=== PATIENT | male | born 1940 | race Caucasian/White ===

== ENCOUNTER 2017-11-02 11:00 | Observation (INO) ==
[2017-11-02 12:16] LABS: Basophils # 0.1 K/mcL (0.0-0.2); Basophils % 0.7 %; Eosinophils # 0.5 K/mcL (0.0-0.6); Eosinophils % 5.6 %; Hematocrit 53.6 % (37.5-50.1); Hemoglobin 18.2 g/dL (12.9-16.9); Immature Granulocytes % 0.5 % (0-4); Lymphocytes # 2.1 K/mcL (0.6-4.6); Lymphocytes % 23.6 %; Mean Corpuscular Hemoglobin 30.5 pg (28.0-33.3); Mean Corpuscular Volume 89.9 fL (83.0-100.0); Mean Platelet Volume 10.3 fL (9.4-12.4); Monocytes # 0.9 K/mcL (0.0-1.3); Monocytes % 10.1 %; Neutrophils # 5.2 K/mcL (1.6-8.9); Platelet Count 253 K/mcL (140-400); Red Blood Count 5.96 M/mcL (4.19-5.50); Segmented Neutrophils % 59.5 %
[2017-11-02 12:25] LABS: Activated Partial Thrombo Time 27.3 Seconds (26.0-36.0)
[2017-11-02 12:35] LABS: BUN/Creatinine Ratio 32 (6-26); Blood Urea Nitrogen 30 mg/dL (8-23); Calcium 10.1 mg/dL (8.6-10.3); Carbon Dioxide 29 mEq/L (23-29); Chloride 102 mEq/L (98-107); Glucose 113 mg/dL (70-105); Osmolality,Calculated 291 (280-300); Potassium 5.3 mEq/L (3.5-5.1); Sodium 137 mEq/L (136-145); eGFR For African Americans > 60 (> 60); eGFR For Non-African Americans > 60 (> 60)
--- NOTE | 2017-11-02 13:17 | Emergency Department Note ---
Disposition Clinical Impression: Atrial fibrillation with RVR Disposition: Admitted As Inpatient Condition: Fair Time of Disposition: 14:12 Arrhythmia/Palpitations HPI - General Chief Complaint: ED Arrhythmia/Palpitations Stated Complaint: new onset afib after epidural injection Time Seen by Provider: 11/02/17 11:26 Source: patient Limitations: no limitations Nursing Notes Reviewed: Yes Vital Signs Reviewed: Yes - History of Present Illness HPI Narrative: 77-year-old male complains of irregular heartbeat for the past 8 months with no follow-up or investigation was found to be A. fib RVR at Dr. Wood's pain management office today. Patient was sent to ED. Patient denies any symptoms of chest pain, back pain, shortness of breath, nausea or vomiting. Patient states he has been having worsening weakness over the past several years. He is currently being treated at pain management for this chronic back pain, and associated upper and lower extremity paresthesias Since his back surgery. - Related Data Home Medications Medication Instructions Recorded Confirmed ALPRAZolam [Xanax 1 MG Tablet] 1 mg PO DAILY 11/02/17 11/02/17 Albuterol Sulfate [Ventolin Hfa] 2 puff IH Q6H PRN 11/02/17 11/02/17 Gabapentin [Neurontin] 300 mg PO DAILY 11/02/17 11/02/17 Levothyroxine [Synthroid] 88 mcg PO DAILY 11/02/17 11/02/17 Lisinopril [Zestril] 10 mg PO DAILY 11/02/17 11/02/17 Pantoprazole Sodium [Protonix] 40 mg PO DAILY 11/02/17 11/02/17 Allergies Allergy/AdvReac Type Severity Reaction Status Date / Time No Known Allergies Allergy Unverified 11/02/17 11:05 All systems ED: reviewed and negative except as stated. Review of Systems: As Per HPI Constitutional: Reports: weakness. Denies: fever, chills Eyes: Denies: vision change ENT ED: Reports: congestion Cardiovascular: Denies: chest pain, palpitations Respiratory: Reports: cough. Denies: dyspnea Gastrointestinal: Denies: abdominal pain, nausea, vomiting, diarrhea Genitourinary: Denies: urgency, dysuria, frequency, hematuria, discharge Past Medical History - Past Medical History Attestation: Yes The following information was validated with the patient. Source: patient, nursing notes reviewed Medical history: Reports: thyroid disease Psychiatric history: Reports: no psych history - Social History Smoking Status: Never smoker Smokeless Tobacco Status: No Alcohol use: Reports: none Drug use: Reports: none Physical Exam Vital Signs Temperature 97.8 F 11/02/17 11:06 Pulse Rate 66 11/02/17 11:06 Respiratory Rate 20 11/02/17 11:06 Blood Pressure 115/73 11/02/17 11:06 O2 Sat by Pulse Oximetry 95 11/02/17 11:06 Temperature 97.8 F 11/02/17 11:06 Pulse Rate 132 11/02/17 13:37 Respiratory Rate 18 11/02/17 13:37 Blood Pressure 101/84 11/02/17 13:37 O2 Sat by Pulse Oximetry 96 11/02/17 13:37 Oxygen Delivery Oxygen Delivery Room Air CONSTITUTIONAL: Well-appearing; well-nourished; A&O X 3, in no apparent distress HEAD: Normocephalic; atraumatic EYES: PERRL, no scleral icterus NOSE: The nose is normal in appearance without rhinorrhea NECK: No JVD or distended neck veins RESP: Normal chest excursion with respiration; breath sounds slightly decreased in the right lower lobe when compared to the left lower lobe; no wheezes, rhonchi, or rales CARD: Irregularly irregular rhythm without murmurs, rub or gallop ABD: Non-distended; non-tender, soft, without rigidity, rebound or guarding,no pulsatile mass CHEST: No pain with palpation SKIN: Normal for age and race; warm and dry without diaphoresis ; no apparent lesions EXTREMITIES: Pulses are 2 plus and equal times 4 extremities, no peripheral edema or calf muscle pain - General Limitations: no limitations General appearance: alert Course - Reevaluation(s) Reevaluation #1: TSH elevated HR 92 Time: 13:17 Vital Signs Temperature 97.8 F 11/02/17 11:06 Pulse Rate 66 11/02/17 11:06 Respiratory Rate 20 11/02/17 11:06 Blood Pressure 115/73 11/02/17 11:06 O2 Sat by Pulse Oximetry 95 11/02/17 11:06 Temperature 97.8 F 11/02/17 11:06 Pulse Rate 108 11/02/17 15:58 Respiratory Rate 16 11/02/17 15:58 Blood Pressure 125/85 11/02/17 15:58 O2 Sat by Pulse Oximetry 93 11/02/17 15:58 Oxygen Delivery Oxygen Delivery Room Air Arrhythmia/Palpitations - [facility] Narrative Medical decision making narrative: Patient new-onset A. fib RVR. No prior cardiac history. Patient has recent upper respiratory infection with cough, chest x-ray taken to rule out pneumonia. TSH ordered this patient has complaints of recent medication difficulties concerning his levothyroxine. Patient's noticed worsening weakness since the manufacturers of his medications were switched. Patient has remained pain-free throughout his evaluation. Patient started on diltiazem 5 mg per hour for A. fib RVR. Patient's rate has been between 110s and 130s to 140 but patient is remained asymptomatic. EKG does not show any signs of ischemia. We do not have her previous EKG for comparison. Chest x-ray was negative for pneumonia. Current plan is to admit the patient for A. fib RVR. Patient understands and agrees to admission. Dr. Noel, the [facility] has accepted Pt for admission at 1324hrs. - Lab Data Lab results reviewed: Yes I reviewed the patient's lab results. Lab results narrative: Short CBC 11/02/17 Range/Units 12:05 WBC 8.7 (4.3-11.1) K/mcL Hgb 18.2 H (12.9-16.9) g/dL Hct 53.6 H (37.5-50.1) % Plt Count 253 (140-400) K/mcL Neutrophils # 5.2 (1.6-8.9) K/mcL BMP 11/02/17 Range/Units 12:05 Sodium 137 (136-145) mEq/L Potassium 5.3 H (3.5-5.1) mEq/L Chloride 102 (98-107) mEq/L Carbon Dioxide 29 (23-29) mEq/L BUN 30 H (8-23) mg/dL Creatinine 0.93 (0.70-1.30) mg/dL Glucose 113 H (70-105) mg/dL Calcium 10.1 (8.6-10.3) mg/dL Cardiac Enzymes 11/02/17 Range/Units 12:05 Troponin I < 0.03 (< 0.04) ng/mL Result diagrams: 11/02/17 12:05 11/02/17 12:05 Lab Results 11/02/17 11/02/17 11/02/17 Range/Units 12:05 12:05 12:05 WBC 8.7 (4.3-11.1) K/mcL RBC 5.96 H (4.19-5.50) M/mcL Hgb 18.2 H (12.9-16.9) g/dL Hct 53.6 H (37.5-50.1) % MCV 89.9 (83.0-100.0) fL MCH 30.5 (28.0-33.3) pg MCHC 34.0 (31.6-35.5) g/dL RDW 13.0 (11.5-14.5) % Plt Count 253 (140-400) K/mcL MPV 10.3 (9.4-12.4) fL Immature Gran % 0.5 (0-4) % Seg Neutrophils % 59.5 % Lymphocytes % 23.6 % Monocytes % 10.1 % Eosinophils % 5.6 % Basophils % 0.7 % Neutrophils # 5.2 (1.6-8.9) K/mcL Lymphocytes # 2.1 (0.6-4.6) K/mcL Monocytes # 0.9 (0.0-1.3) K/mcL Eosinophils # 0.5 (0.0-0.6) K/mcL Basophils # 0.1 (0.0-0.2) K/mcL PT 11.0 (9.4-12.1) Seconds INR 1.0 APTT 27.3 (26.0-36.0) Seconds Sodium 137 (136-145) mEq/L Potassium 5.3 H (3.5-5.1) mEq/L Chloride 102 (98-107) mEq/L Carbon Dioxide 29 (23-29) mEq/L BUN 30 H (8-23) mg/dL Creatinine 0.93 (0.70-1.30) mg/dL Est GFR ( Amer) > 60 (> 60) Est GFR (Non-Af Amer) > 60 (> 60) BUN/Creatinine Ratio 32 H (6-26) Glucose 113 H (70-105) mg/dL Calculated Osmolality 291 (280-300) Calcium 10.1 (8.6-10.3) mg/dL Troponin I (< 0.04) ng/mL TSH 4.540 (0.340-5.600) mcIU/mL 11/02/17 Range/Units 12:05 WBC (4.3-11.1) K/mcL RBC (4.19-5.50) M/mcL Hgb (12.9-16.9) g/dL Hct (37.5-50.1) % MCV (83.0-100.0) fL MCH (28.0-33.3) pg MCHC (31.6-35.5) g/dL RDW (11.5-14.5) % Plt Count (140-400) K/mcL MPV (9.4-12.4) fL Immature Gran % (0-4) % Seg Neutrophils % % Lymphocytes % % Monocytes % % Eosinophils % % Basophils % % Neutrophils # (1.6-8.9) K/mcL Lymphocytes # (0.6-4.6) K/mcL Monocytes # (0.0-1.3) K/mcL Eosinophils # (0.0-0.6) K/mcL Basophils # (0.0-0.2) K/mcL PT (9.4-12.1) Seconds INR APTT (26.0-36.0) Seconds Sodium (136-145) mEq/L Potassium (3.5-5.1) mEq/L Chloride (98-107) mEq/L Carbon Dioxide (23-29) mEq/L BUN (8-23) mg/dL Creatinine (0.70-1.30) mg/dL Est GFR ( Amer) (> 60) Est GFR (Non-Af Amer) (> 60) BUN/Creatinine Ratio (6-26) Glucose (70-105) mg/dL Calculated Osmolality (280-300) Calcium (8.6-10.3) mg/dL Troponin I < 0.03 (< 0.04) ng/mL TSH (0.340-5.600) mcIU/mL - Radiology Data Radiology results reviewed: Yes I reviewed the patient's radiology results. Chest X-Ray 11/02/17 11:32 IMPRESSION: Mild cardiomegaly. No acute pulmonary disease. D/ / Jorge Hernandez MD / Jorge Hernandez MD Interpreting Provider: Jorge Hernandez MD Attestation Statement - Attestation Attestation: I, Zacarias Nowak, examined this patient and my medical decision-making was reviewed with the NEPHROLOGIST/PA/Advanced Practice Nurse/Resident Physician. I agree with the documented findings, disposition and treatment plan as described except to the extent set forth below. 77-year-old male presents emergency Department with concerns of irregular heart rate. Patient states his symptoms have been present for the past 8 months. He does not have a history of atrial fibrillation or a flutter however the has noticed an irregular heartbeat. Patient denies fever, chills, nausea, vomiting, diarrhea. Patient states he takes levothyroxine and felt he may have been becoming hyper thyroid and stopped his levothyroxine 3 days ago. Patient has elevated TSH in emergency department which is consistent with stopping his medications. Patient to take metoprolol or diltiazem or other heart rate limiting medications. No other recent trauma. Patient heart rate bouncing between 100-140 in the emergency department. He was started on diltiazem drip. He denies chest pain, shortness breath, syncope. He does report weakness with exertion over the past few weeks. Patient comfortable with the plan for admission to hospital for further care and evaluation.
[2017-11-02] MEDS ORDERED: *HR* Metoprolol 5 MG/5 ML VIAL IVP PRN (13:46)
[2017-11-02] MEDS ORDERED: Naloxone 0.4 MG/ML INJ IVP PRN (14:02)
--- NOTE | 2017-11-02 14:08 | Internal Med History&Physical ---
Date of Encounter: 11/02/17 Time of Encounter: 14:05 Assessment and Plan (1) New onset atrial fibrillation Current visit: Yes Status: Acute New A-fib with RVR, no prior cardiac history. Exacerbating factor is unclear, no h/o CAD, No S/sx of ACS, CXR shows no acute disease, No obvious infective source. He is reporting an 8 month h/o exertional dyspnea, and activity intolerance d/t fatigue. Additionally he has hypothyroidism but his TSH resulted at 4.54. He is now on a cardizem gtt and no longer RVR. 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 CHADS-VASc score of 2, HAS-BLED of 2 -Continue Cardizem gtt -Continuous tele and Spo2 monitoring -Heparin 5000 units SC BID for DVT prophylaxis -Cardio consult d/t new onset -NICOLETTE (2) Activity intolerance related to fatigue Current visit: Yes Status: Acute Reporting an 8 month h/o activity intolerance r/t fatigue. He is also reporting exertional dyspnea during that time. He was found to be a-fib RVR today on EKG and this is likely the cause of his activity intolerance and dyspnea. See plan above (3) Hyperkalemia Current visit: Yes Status: Acute Serum potassium of 5.3. He is on an LONDON inhibitor. Hold LONDON for now. Recheck serum potassium at 1800 today, BMP in the am, continuous tele (4) HTN (hypertension) Current visit: Yes Status: Acute Stable, however he is on an LONDON and has hyperkalemia -hold LONDON -Metoprolol 5mg IVP Q6h PRN for SBP greater than 160 Qualifiers: Hypertension type: essential hypertension Qualified Code(s): I10 - Essential (primary) hypertension (5) Hypothyroidism Current visit: Yes Status: Acute TSH 4.54, Continue synthroid Qualifiers: Hypothyroidism type: unspecified Qualified Code(s): E03.9 - Hypothyroidism , unspecified (6) DVT prophylaxis Current visit: Yes Status: Acute Heparin 5000 units SC BID Internal Medicine - H&P: HPI Chief complaint: shortness of breath, weakness, lightheadedness Admitted From: Home Plans for Post Hospital Care: Home History of present illness: Mr. Rivera is a 77 year old male with a PMH of hypertension and hypothyroidism. The patient presents to the emergency department today from [facility] and joint after getting a steroid injection. He reports that while at the due to bone and joint he had an EKG due to fast heart rate and he was found to be in A. fib with RVR. He has no prior history of CAD and has never had an episode of atrial fibrillation before. Upon questioning the patient reveals that he has had exertional dyspnea and activity intolerance due to fatigue for approximately the last 8 months. While in the emergency department he was started on a diltiazem drip. He denies any chest pain,, headache, syncope, dizziness, abdominal pain, nausea, vomiting, diarrhea. He admits to exertional dyspnea, lightheadedness and fatigue with activity. He states that these symptoms have been getting worse over the last month. Past Med Surg Social Fam HX - Past Medical History Medical history: thyroid disease Psychiatric history: no psych history - Social History Smoking Status: Never smoker Smokeless Tobacco Status: No Alcohol use: none Drug use: none - Additional Family History Additional family history: noncontributory Internal Medicine - H&P: Meds ALPRAZolam [Xanax 1 MG Tablet] 1 mg PO DAILY 11/02/17 [History] Albuterol Sulfate [Ventolin Hfa] 2 puff IH Q6H PRN 11/02/17 [History] Gabapentin [Neurontin] 300 mg PO DAILY 11/02/17 [History] Levothyroxine [Synthroid] 88 mcg PO DAILY 11/02/17 [History] Lisinopril [Zestril] 10 mg PO DAILY 11/02/17 [History] Pantoprazole Sodium [Protonix] 40 mg PO DAILY 11/02/17 [History] 3 Allergy/AdvReac Type Severity Reaction Status Date / Time No Known Allergies Allergy Unverified 11/02/17 11:05 All Systems PM: A 10-system review of systems was performed and is negative for pertinent findings except as documented above in the HPI. - Constitutional Constitutional: fatigue (with activity), weakness (with activity), no chills, no fever(s), no night sweats - EENT Eyes: no change in vision, no discharge, no pain, no photophobia Ears: no ear discharge, no ear pain, no tinnitus Nose, mouth and throat: no dysphagia, no nasal discharge, no neck pain, no sore throat - Cardiovascular Cardiovascular ROS IM: dyspnea on exertion, lightheadedness, palpitations, no chest pain, no claudication, no diaphoresis, no edema, no irregular heart rhythm , no orthopnea, no paroxysmal nocturnal dyspnea, no syncope - Respiratory Respiratory: dyspnea on exertion, no cough - Gastrointestinal Gastrointestinal: no abdominal pain, no diarrhea, no hematemesis, no hematochezia, no melena, no nausea, no vomiting - Genitourinary Genitourinary ROS male: no dysuria, no flank pain - Musculoskeletal Musculoskeletal ROS IM: no numbness, no tingling - Integumentary Integumentary IM: no rash, no unusual bruising - Neurological Neurological ROS: no confusion, no convulsions, no focal weakness, no numbness, no tingling, no tremor(s) - Constitutional Vitals: Temp Pulse Resp BP Pulse Ox 97.8 F 132 18 101/84 96 11/02/17 11:06 11/02/17 13:37 11/02/17 13:37 11/02/17 13:37 11/02/17 13:37 General appearance: Present: cooperative, A&O X 3, no acute distress, answers questions appropriately - Head Head exam: Present: atraumatic, normocephalic - Eye Eye exam: Present: PERRL, conjuntiva pink, sclera anicteric Pupils: Present: PERRL - Neck Neck exam general surgery: Present: supple, trachea midline. Absent: lymphadenopathy - Respiratory Respiratory exam: Present: rhonchi (RUL). Absent: accessory muscle use, chest wall tenderness, prolonged expiratory phase, rales, respiratory distress, wheezes, tachypnea - Cardiovascular Cardiovascular exam: Present: irregular rhythm, tachycardia. Absent: diastolic murmur, gallop, rubs, systolic murmur - GI/Abdominal GI/Abdominal exam: Present: normal bowel sounds, soft, no peritoneal signs. Absent: distended, tenderness - Extremities Exam Extremities exam: Present: warm, radial pulses palpable and symmetrical. Absent : calf tenderness, cyanotic, pedal edema - Neurological Exam Neurological exam: Present: alert, oriented X3. Absent: facial droop, speech deficit - Skin Skin exam: Present: dry, intact Internal Med - H&P Results - Labs CBC & Chem 7: 11/02/17 12:05 11/02/17 12:05 Labs: Short CBC 02/12/18 Range/Units 12:05 WBC 8.7 (4.3-11.1) K/mcL Hgb 18.2 H (12.9-16.9) g/dL Hct 53.6 H (37.5-50.1) % Plt Count 253 (140-400) K/mcL Neutrophils # 5.2 (1.6-8.9) K/mcL BMP 11/02/17 12:05 Sodium 137 Potassium 5.3 H Chloride 102 Carbon Dioxide 29 BUN 30 H Creatinine 0.93 Glucose 113 H Calcium 10.1 Cardiac Enzymes 11/02/17 Range/Units 12:05 Troponin I < 0.03 (< 0.04) ng/mL - EKG Data -: EKG Interpreted by Myself - EKG Data EKG comments: A-fib with RVR 11/02/17 14:08 - Impressions ITS Impressions Chest X-Ray 11/02/17 11:32 IMPRESSION: Mild cardiomegaly. No acute pulmonary disease. D/ / Jorge Hernandez MD / Jorge Hernandez MD Interpreting Provider: Jorge Hernandez MD
[2017-11-02] MEDS ORDERED: *HR* Heparin 5,000 UNIT/ML VIAL IVP PRN ×2 (14:48)
[2017-11-02] MEDS ORDERED: *HR* Heparin 5,000 UNIT/ML VIAL IVP ONE (14:48)
[2017-11-02] MEDS: Heparin 25,000 UNIT/500 ML D5W 25,000 UNIT/500 ML BAG IVC SCH (15:49)
[2017-11-02] MEDS ORDERED: *HR* Heparin 5,000 UNIT/ML VIAL SQ SCH (18:00)
[2017-11-02] MEDS: ALPRAZolam 0.5 MG TABLET PO SCH (20:54)
[2017-11-02] MEDS: Gabapentin 300 MG CAPSULE PO SCH (20:54)
[2017-11-03 05:41] LABS: BUN/Creatinine Ratio 37 (6-26); Blood Urea Nitrogen 29 mg/dL (8-23); Calcium 9.3 mg/dL (8.6-10.3); Carbon Dioxide 23 mEq/L (23-29); Chloride 104 mEq/L (98-107); Glucose 132 mg/dL (70-105); Osmolality,Calculated 290 (280-300); Potassium 4.4 mEq/L (3.5-5.1); Sodium 136 mEq/L (136-145); eGFR For African Americans > 60 (> 60); eGFR For Non-African Americans > 60 (> 60)
[2017-11-03] MEDS ORDERED: ALPRAZolam 1 MG TABLET PO SCH (09:00)
[2017-11-03] MEDS ORDERED: Gabapentin 300 MG CAPSULE PO SCH (09:00)
--- NOTE | 2017-11-03 09:12 | Electrocardiograph Report ---
[facility] Test Date: 2017-11-02 Pat Name: Jason Rivera Department: [id number] Room: 2SH28 Gender: M [employer]: KIRT : 1940 Requested By: Martell Marquis Order Number: [id number] Reading MD: Omari Sumner MD Measurements Intervals [place]ertile Rate: 116 P: FL: 0 QRS: 42 QRSD: 79 T: 65 QT: 300 QTc: 369 Interpretive Statements ATRIAL FIBRILLATION WITH RAPID VENTRICULAR RESPONSE POSSIBLE ANTERIOR MYOCARDIAL INFARCTION [30 ms Q WAVE IN V3/V4, OR R < 0.2 mV IN V4], PROBABLY OLD ABNORMAL RHYTHM ECG Electronically Signed On 11-03-2017 9:10:48 EST by Omari Sumner MD
--- NOTE | 2017-11-03 12:08 | Internal Med Progress Note ---
Date of Encounter: 11/03/17 Time of Encounter: 12:08 - Assessment and plan (1) New onset atrial fibrillation Current Visit: Yes Status: Acute Assessment and plan: Currently rate controlled on cardizem drip, patient denies any symptoms currently Echocardiogram pending Continue heparin drip, cardizem drip Cardiology consulted, recommendations appreciated Patient would like to go home today, we discussed risks of going home too early without proper cardiac workup and treatment. (2) HTN (hypertension) Current Visit: Yes Status: Acute Assessment and plan: Controlled, london inhibitor held because of elevated potassium on admission. Qualifiers: Hypertension type: essential hypertension Qualified Code(s): I10 - Essential (primary) hypertension (3) Hyperkalemia Current Visit: Yes Status: Acute Assessment and plan: LONDON inhibitor held, recheck was normal this morning. (4) DVT prophylaxis Current Visit: Yes Status: Acute Assessment and plan: Currently on heparin drip - Subjective Interval history: No complaints, no acute events overnight. Denies chest pain, SOB, palpitations , n/v, fevers/chills. - Constitutional Vitals: Temp Pulse Resp BP Pulse Ox 97.3 F L 85 16 117/77 94 11/03/17 08:10 11/03/17 08:10 11/03/17 08:10 11/03/17 08:10 11/03/17 08:10 General appearance: Present: cooperative, A&O X 3, no acute distress, answers questions appropriately - Head Head exam: Present: atraumatic, normocephalic - Eye Eye exam: Present: PERRL, conjuntiva pink, sclera anicteric Pupils: Present: PERRL - Neck Neck exam general surgery: Present: supple, trachea midline. Absent: lymphadenopathy - Respiratory Respiratory exam: Present: CTAB. Absent: accessory muscle use, rales, rhonchi, wheezes - Cardiovascular Cardiovascular exam: Present: irregular rhythm, +S1, +S2. Absent: diastolic murmur, gallop, rubs, systolic murmur - GI/Abdominal GI/Abdominal exam: Present: normal bowel sounds, soft, no peritoneal signs. Absent: distended, tenderness - Extremities Exam Extremities exam: Present: warm, radial pulses palpable and symmetrical. Absent : calf tenderness, cyanotic, pedal edema - Neurological Exam Neurological exam: Present: CN II-XII intact, oriented X3, no focal deficits. Absent: pronater drift, facial droop, speech deficit - Skin Skin exam: Present: dry, intact Internal Medicine: Result - Labs CBC & Chem 7: 11/02/17 12:05 11/03/17 04:33 Labs: BMP 11/03/17 11/03/17 00:01 04:33 Sodium 136 Potassium 4.5 4.4 Chloride 104 Carbon Dioxide 23 BUN 29 H Creatinine 0.78 Glucose 132 H Calcium 9.3 Cardiac Enzymes 11/02/17 Range/Units 15:57 Troponin I < 0.03 (< 0.04) ng/mL - ABG Interpretation ABG results: PT/INR, D-dimer PT 11.0 Seconds (9.4-12.1) 11/02/17 12:05 - Impressions Impressions Echocardiogram 11/02/17 14:37 Impressions: LVEF 45%. Normal LV chamber size and wall thickness. Mild global left ventricular systolic dysfunction. Indeterminate diastolic function. Normal right ventricular structure and function. Severely dilated left atrium. Mild mitral regurgitation. No evidence of pulmonary hypertension. No significant valvular dysfunction. Left Ventricular Wall Motion: Rest Echo Findings The apex, apical inferior, mid inferior, basal inferior, apical anterior, mid anterior, basal anterior, apical septal, mid inferior septal, basal inferior septal, apical lateral, mid anterior lateral, basal anterior lateral, mid anterior septal, mid inferior lateral, basal anterior septal and basal inferior lateral peck were hypokinetic. Findings: Study Quality * Technically adequate exam. ECG Findings * Atrial fibrillation. Left Ventricle * LVEF 45%. * Normal LV chamber size and wall thickness. * Mild global left ventricular systolic dysfunction. * Indeterminate diastolic function. Right Ventricle * Normal right ventricular structure and function. Left Atrium * Severely dilated left atrium. Right Atrium * Moderate to severely dilated right atrium. Interatrial Septum * Interatrial septum not well evaluated. Aortic Valve * Aortic valve not well visualized. * Mildly calcified aortic valve leaflets. * No aortic regurgitation. * No aortic stenosis. Mitral Valve * Mildly thickened and calcified anterior mitral valve leaflets. Mild posterior mitral annular calcification. * Mild mitral regurgitation. * No mitral stenosis by Doppler. Gradient may be underestimated due to AF. Tricuspid Valve * Normal tricuspid valve structure and function. * Trace tricuspid regurgitation. * No evidence of pulmonary hypertension. Pulmonic Valve * Normal pulmonic valve structure. * Mild pulmonic regurgitation. Aorta * Normally sized aortic root. Pericardium * The pericardium appears normal. IVC * Normal IVC dimensions and inspiratory collapse. Pulmonary Artery * Normal visualized portions of the main pulmonary artery. Consult Discharge Plan - Plan Referrals: Milton Platt MD [Primary Care Provider] -
--- NOTE | 2017-11-03 14:15 | Cardiology Consult Note ---
<Cedric Wilson R - Last Filed: 11/03/17 15:11> Date of Encounter: 11/03/17 Time of Encounter: 14:15 Assessment and Plan (1) Atrial fibrillation with RVR Current Visit: Yes Status: Acute New diagnosis, but unclear onset. Per pt's , when symptoms of worsening fatigue and exertional dyspnea started approximately 8 months ago, she reports feeling an irregular pulse at that time. HR 116 on presentation, currently 80s-90s at bedside on Cardizem gtt at 5mg/hr. Given mildly reduced EF, will stop gtt and start Toprol XL 25mg daily. Uptitrate as necessary for HR control <100. Echo EF 45%, mild global LV systolic dysfunction, severely dilated left atrium, mild MR. No prior to compare. TSH 4.540. K 4.4. Check Mag. [id number] (Age, HTN). Currently on heparin gtt. High CVA risk. Recommend extermination inspector anticoagulation. Discussed Coumadin vs NOACs. Prefers NOAC if affordable. Will velasquez check. Will also wait to start until after ischemic evaluation is completed. (2) Cardiomyopathy Current Visit: Yes Status: Acute EF mildly reduced, 45%, global. Suspect tachycardia induced, but cannot rule out ischemic cause. After discussing with Dr. Mercado, given pt's age and HTN with symptoms of worsening dyspnea and fatigue, recommend LHC to rule out ischemic cause. Will discuss R/B/A to see if pt agrees. If agreeable, plan for LHC tomorrow. Continue BB. ACEi prior to d/c if BP will tolerate after rate controlled. Qualifiers: Cardiomyopathy type: unspecified Qualified Code(s): I42.9 - Cardiomyopathy , unspecified Discussion w patient/family: The assessment and plan as outlined above was discussed with the patient and/or family members who expressed understanding and agreement. All questions were answered. Thank you for involving us in the care of your patient. Please call with any questions. I will discuss all the above with Dr. Mercado and make changes as necessary. History of Present Illness Consult date: 11/03/17 Requesting physician: Rahul Christie Consult reason: A-Fib RVR, mildly reduced EF Chief complaint: dyspnea, fatigue History of present illness: Mr. Rivera is a 77 year old male with PMH of hypertension and hypothyroidism. The patient presented to the ED after getting a steroid injection. He states staff took vitals before he left and his HR was elevated and irregular, EKG was obtained showing A-Fib RVR and he was sent to the ED. He has no prior history of CAD. Upon questioning the patient reveals that he has had exertional dyspnea and activity intolerance due to fatigue for approximately the last 8 months. is at bedside and reports she has also felt his pulse to be irregular approximately 8 months ago. Pt denies chest pain or palpitations. He admits to exertional dyspnea, lightheadedness and fatigue with activity. He reports occasional dizziness with position change. He states that these symptoms have been getting worse over the last month and has also noticed episodes of "hot flashes" and diaphoresis. Troponins negative x 2. Echo resulted--EF 45%, mild global LV systolic dysfunction, severely dilated LA, mild MR. No phtn, no significant valvular dysfunction. Pt is currently on cardizem gtt at 5mg/hr, HR 80s-90s at bedside, A-Fib. Pt on heparin gtt as well. Past Med Surg Social Fam HX - Past Medical History Medical history: hypertension, thyroid disease Psychiatric history: no psych history - Social History Smoking Status: Never smoker Smokeless Tobacco Status: No Alcohol use: none Drug use: none Medications and Allergies ALPRAZolam [Xanax 1 MG Tablet] 1 mg PO DAILY 11/02/17 [History] Albuterol Sulfate [Ventolin Hfa] 2 puff IH Q6H PRN 11/02/17 [History] Gabapentin [Neurontin] 300 mg PO DAILY 11/02/17 [History] Levothyroxine [Synthroid] 88 mcg PO DAILY 11/02/17 [History] Lisinopril [Zestril] 10 mg PO DAILY 11/02/17 [History] Pantoprazole Sodium [Protonix] 40 mg PO DAILY 11/02/17 [History] 3 Allergy/AdvReac Type Severity Reaction Status Date / Time No Known Allergies Allergy Unverified 11/02/17 11:05 All Systems Review: A 10-system review of systems was performed and is negative for pertinent findings except as documented above in the HPI. - Constitutional Constitutional: fatigue - Cardiovascular Cardiovascular: as per HPI, diaphoresis, dyspnea on exertion, lightheadedness - Respiratory Respiratory: dyspnea - Neurological Neurological: dizziness Physical Examination Vital Signs, Last 4 Hours Temp Pulse Resp BP Pulse Ox 11/03/17 12:34 98.3 F 82 16 120/92 96 Vital Signs Temp Pulse Resp BP Pulse Ox 11/03/17 12:34 98.3 F 82 16 120/92 96 11/03/17 08:10 97.3 F L 85 16 117/77 94 11/03/17 00:13 95 8 108/84 95 11/02/17 15:58 108 16 125/85 93 11/02/17 14:35 16 109/85 Intake and Output 11/02/17 11/03/17 11/03/17 23:59 07:59 15:59 Intake Total 37.7 / 37.7 64.4 / 64.4 360 / 360 Output Total 200 / 200 200 / 200 Balance 37.7 / 37.7 -135.6 / -135.6 160 / 160 Intake: IV Fluids 37.7 / 37.7 64.4 / 64.4 Cardizem 125 MG In 0.9 % Sodium 37.7 / 37.7 64.4 / 64.4 Chloride 100 ML @ 5 MG/HR 5 mls/hr IVC .Q24H INA Rx#: [id number] Heparin 25,000 UNIT/500 ML D5W 0 / 0 0 / 0 25,000 unit In 500 ml @ 12 UNIT /KG/HR 18.398 mls/hr IVC .Q24H INA Rx#:[id number] Oral 360 / 360 Output: Urine 200 / 200 200 / 200 Other: Meal Breakfast Percent of Meal Consumed 75% # Voids 1 Weight 78.9 kg Patient Weight 11/03/17 23:59 Weight 78.9 kg General: Conversant, No Apparent Distress HEENT: Atraumatic, Normocephaly, Mucus Membranes Moist Neck: No JVD, Normal carotid pulses Cardiac: Other (irregularly irregular) Lungs: Normal Breath Sounds, No Wheeze, Rales, Rhonchi Neuro: Alert and responsive, No focal deficits noted Abdomen: Soft, Non-Tender Skin: No rashes noted on visualized skin Musculoskeletal: No Chest Wall Tenderness Extremities: No Clubbing, No Cyanosis, No Edema, Normal Pulses Results 11/02/17 12:05 11/03/17 04:33 Lab Results 11/02/17 11/02/17 11/03/17 15:57 23:12 00:01 APTT 72.1 H D Sodium Potassium 4.5 Chloride Carbon Dioxide BUN Creatinine Glucose Calcium Troponin I < 0.03 11/03/17 11/03/17 04:33 04:33 APTT 70.3 H Sodium 136 Potassium 4.4 Chloride 104 Carbon Dioxide 23 BUN 29 H Creatinine 0.78 Glucose 132 H Calcium 9.3 Troponin I BMP 11/03/17 11/03/17 Range/Units 04:33 00:01 Sodium 136 (136-145) mEq/L Potassium 4.4 4.5 (3.5-5.1) mEq/L Chloride 104 (98-107) mEq/L Carbon Dioxide 23 (23-29) mEq/L BUN 29 H (8-23) mg/dL Creatinine 0.78 (0.70-1.30) mg/dL Glucose 132 H (70-105) mg/dL Calcium 9.3 (8.6-10.3) mg/dL Cardiac Enzymes 11/02/17 Range/Units 15:57 Troponin I < 0.03 (< 0.04) ng/mL Impressions Echocardiogram 11/02/17 14:37 Impressions: LVEF 45%. Normal LV chamber size and wall thickness. Mild global left ventricular systolic dysfunction. Indeterminate diastolic function. Normal right ventricular structure and function. Severely dilated left atrium. Mild mitral regurgitation. No evidence of pulmonary hypertension. No significant valvular dysfunction. Left Ventricular Wall Motion: Rest Echo Findings The apex, apical inferior, mid inferior, basal inferior, apical anterior, mid anterior, basal anterior, apical septal, mid inferior septal, basal inferior septal, apical lateral, mid anterior lateral, basal anterior lateral, mid anterior septal, mid inferior lateral, basal anterior septal and basal inferior lateral peck were hypokinetic. Findings: Study Quality * Technically adequate exam. ECG Findings * Atrial fibrillation. Left Ventricle * LVEF 45%. * Normal LV chamber size and wall thickness. * Mild global left ventricular systolic dysfunction. * Indeterminate diastolic function. Right Ventricle * Normal right ventricular structure and function. Left Atrium * Severely dilated left atrium. Right Atrium * Moderate to severely dilated right atrium. Interatrial Septum * Interatrial septum not well evaluated. Aortic Valve * Aortic valve not well visualized. * Mildly calcified aortic valve leaflets. * No aortic regurgitation. * No aortic stenosis. Mitral Valve * Mildly thickened and calcified anterior mitral valve leaflets. Mild posterior mitral annular calcification. * Mild mitral regurgitation. * No mitral stenosis by Doppler. Gradient may be underestimated due to AF. Tricuspid Valve * Normal tricuspid valve structure and function. * Trace tricuspid regurgitation. * No evidence of pulmonary hypertension. Pulmonic Valve * Normal pulmonic valve structure. * Mild pulmonic regurgitation. Aorta * Normally sized aortic root. Pericardium * The pericardium appears normal. IVC * Normal IVC dimensions and inspiratory collapse. Pulmonary Artery * Normal visualized portions of the main pulmonary artery. Active Medications Albuterol Sulfate (Albuterol Inhaler) 2 puff IH Q6H PRN PRN Reason: Dyspnea Stop: 05/04/18 13:47 Alprazolam (Xanax) 1 mg PO HS INA PRN Reason: Protocol Stop: 05/04/18 21:01 Last Admin: 11/02/17 20:54 Dose: 1 mg Gabapentin (Neurontin) 300 mg PO HS INA Stop: 05/04/18 21:01 Last Admin: 11/02/17 20:54 Dose: 300 mg Heparin Sodium (Porcine) (Heparin) 4,000 unit IVP Q6HR PRN PRN Reason: SEE COMMENTS Stop: 05/04/18 14:49 Heparin Sodium (Porcine) (Heparin) 2,000 unit IVP Q6H PRN PRN Reason: SEE COMMENTS Stop: 05/04/18 14:49 Diltiazem HCl 125 mg/ Sodium (Chloride) 125 mls @ 5 mls/hr IVC .Q24H INA; 5 MG/ HR PRN Reason: Protocol Stop: 05/04/18 12:16 Last Admin: 11/03/17 03:43 Dose: 5 mg/hr, 5 mls/hr Heparin Sodium/Dextrose (Heparin 25,000 Unit/500 Ml D5w) 25,000 unit in 500 mls @ 18.398 mls/hr IVC .Q24H INA; 12 UNIT/KG/HR PRN Reason: Protocol Stop: 05/04/18 15:01 Last Titration: 11/03/17 05:54 Dose: 12 unit/kg/hr, 18.4 mls/hr Levothyroxine Sodium (Synthroid) 88 mcg PO DAILY INA Stop: 05/05/18 09:01 Last Admin: 11/03/17 10:45 Dose: 88 mcg Metoprolol Tartrate (Lopressor) 5 mg IVP Q6HR PRN PRN Reason: Hypertension Stop: 05/04/18 13:47 Naloxone HCl (Narcan) 0.4 mg IVP Q2MIN PRN PRN Reason: SEE COMMENTS Stop: 05/04/18 14:03 Omeprazole (Prilosec) 20 mg PO 0630 INA Stop: 05/05/18 06:31 Last Admin: 11/03/17 05:48 Dose: 20 mg - Imaging and Cardiology Echo: report reviewed - EKG Interpretation EKG results cardiology: personally reviewed (A-Fib RVR, rate 116.) Consult Discharge Plan - Plan Referrals: Milton Platt MD [Primary Care Provider] - <Jo Mercado - Last Filed: 11/03/17 17:03> Date of Encounter: 11/03/17 - Attending Attestation I examined this patient and my medical decision-making was reviewed with the SEGMENT PRODUCER. I agree with the documented findings, disposition and treatment plan as described. Mr. Rivera was sent to the ER after heart rates were noted to be elevated by medical staff after he received a lumbar steroid injection. He was noted to be in AF RVR by ECG when presenting to the ER. He is presently in AFIB with controlled heart rate on cardizem gtt. He denies having chest pain. He admits to worsening fatigue and not feeling well since February but cannot give specific details - he attributes it in part due to back pain. He hasn't noticed palpitations but when others have checked pulse, it has sometimes felt irregular over the past 6 months. Duration of development of AF is unknown. Upon admission, echo demonstrated reduced LVEF 45%, global. This new finding is possibly secondary to tachycardia induced reduction or alternatively CAD. Risk factors include male gender, age, HTN. Lipids are not available for review - will add to labs. I discussed consideration for proceeding with [facility] [place]. The R/B/A of the procedure were discussed with the patient. He expressed understanding. However, he would like to discuss with his friend. We will readdress in the morning. Will keep him NPO. Recommend stopping cardizem and transitioning to Toprol. He is on heparin for anticoagulation. CHADSVASC 3 - patient interested in trying NOAC. Will velasquez check. Renal function is normal. Assessment and Plan Discussion w patient/family: The assessment and plan as outlined above was discussed with the patient and/or family members who expressed understanding and agreement. All questions were answered. Thank you for involving us in the care of your patient. Please call with any questions. History of Present Illness History of present illness: Mr. Rivera is a 77 year old male All Systems Review: A 10-system review of systems was performed and is negative for pertinent findings except as documented above in the HPI. Physical Examination Vital Signs, Last 4 Hours Temp Pulse Resp BP Pulse Ox 11/03/17 16:06 98.4 F 87 16 115/86 94 Results 11/02/17 12:05 11/03/17 04:33 Lab Results 11/02/17 11/03/17 11/03/17 23:12 00:01 04:33 APTT 72.1 H D Sodium 136 Potassium 4.5 4.4 Chloride 104 Carbon Dioxide 23 BUN 29 H Creatinine 0.78 Glucose 132 H Calcium 9.3 11/03/17 04:33 APTT 70.3 H Sodium Potassium Chloride Carbon Dioxide BUN Creatinine Glucose Calcium
[2017-11-03] MEDS: Metoprolol XL (24 HR) Succ 25 MG TAB.ER.24H PO SCH (17:08)
[2017-11-03] MEDS: Heparin 25,000 UNIT/500 ML D5W 25,000 UNIT/500 ML BAG IVC SCH (17:08)
[2017-11-03] MEDS: Gabapentin 300 MG CAPSULE PO SCH (21:37)
[2017-11-03] MEDS: ALPRAZolam 0.5 MG TABLET PO SCH (21:37)
[2017-11-04 05:33] LABS: Basophils % 0.4 %; Eosinophils # 0.2 K/mcL (0.0-0.6); Eosinophils % 2.1 %; Hematocrit 48.8 % (37.5-50.1); Hemoglobin 16.8 g/dL (12.9-16.9); Immature Granulocytes % 0.5 % (0-4); Lymphocytes # 1.8 K/mcL (0.6-4.6); Lymphocytes % 18.7 %; Mean Corpuscular HGB Conc 34.4 g/dL (31.6-35.5); Mean Corpuscular Hemoglobin 30.3 pg (28.0-33.3); Mean Corpuscular Volume 88.1 fL (83.0-100.0); Mean Platelet Volume 10.6 fL (9.4-12.4); Monocytes # 0.9 K/mcL (0.0-1.3); Monocytes % 9.8 %; Neutrophils # 6.5 K/mcL (1.6-8.9); Platelet Count 243 K/mcL (140-400); Red Blood Count 5.54 M/mcL (4.19-5.50); Red Cell Distribution Width 12.8 % (11.5-14.5); Segmented Neutrophils % 68.5 %
[2017-11-04 05:50] LABS: BUN/Creatinine Ratio 38 (6-26); Blood Urea Nitrogen 27 mg/dL (8-23); Calcium 8.9 mg/dL (8.6-10.3); Carbon Dioxide 21 mEq/L (23-29); Chloride 105 mEq/L (98-107); Chol/HDL Ratio 6.2 (0-4.9); Cholesterol 198 mg/dL (< 200); Glucose 122 mg/dL (70-105); HDL Cholesterol 32 mg/dL (40-59); LDL Cholesterol,Calculated 139 mg/dL (0-99); Magnesium 2.1 mg/dL (1.6-2.6); Osmolality,Calculated 286 (280-300); Potassium 4.2 mEq/L (3.5-5.1); Sodium 135 mEq/L (136-145); Triglycerides 137 mg/dL (< 150); eGFR For African Americans > 60 (> 60); eGFR For Non-African Americans > 60 (> 60)
[2017-11-04] MEDS: Metoprolol XL (24 HR) Succ 25 MG TAB.ER.24H PO SCH (09:30)
--- NOTE | 2017-11-04 10:08 | Event Note ---
Date of Encounter: 11/04/17 Time of Encounter: 10:07 - Cardiology Event Note Pt agrees to proceed with C for CMP--EF 45%, to rule out ischemic cause. R/B/ A discussed. Labs and vitals reviewed. Plan for LHC today. Rate controlled A- Fib on Toprol XL 25mg daily. Will velasquez check NOAC. Currently on heparin gtt for anticoagulation.
[2017-11-04] MEDS ORDERED: *HR* Heparin 10,000 UNIT/10 ML VIAL ONE (15:10)
[2017-11-04] MEDS ORDERED: Verapamil 5 MG/2 ML VIAL ONE (15:10)
[2017-11-04] MEDS ORDERED: Heparin 1,000 UNITS/500 mL 500 ML ONE (15:10)
[2017-11-04] MEDS ORDERED: Nitroglycerin 1,000 MCG/10 ML VIAL IV ONE (15:11)
[2017-11-04] MEDS ORDERED: 0.9 % Sodium Chloride 1,000 ML ONE ×2 (15:11→15:35)
[2017-11-04] MEDS ORDERED: ISOVUE-370 200 ML INFUS..BTL IV ONE (15:11)
[2017-11-04] MEDS ORDERED: *HR* Midazolam HCl 2 MG/2 ML VIAL ONE (15:28)
[2017-11-04] MEDS ORDERED: *HR* FentaNYL (PF) 100 MCG/2 ML VIAL ONE (15:28)
--- NOTE | 2017-11-04 15:35 | Pre-Sedation Evaluation ---
Pre-sedation evaluation - Pre-sedation checklist Date of procedure: 11/04/17 Procedure: [facility] Recent Vitals: Last Vital Signs Temp 98.1 F 11/04/17 11:20 Pulse 75 11/04/17 11:20 Resp 18 11/04/17 11:20 BP 124/73 11/04/17 11:20 Pulse Ox 95 11/04/17 11:20 H&P (including ROS) documented in medical record: Yes Previous reaction to sedatives/anesthetics: No Dietary Status: NPO 6 hours prior to procedure Dentition: dentures removed ASA Classification *see protocol: CLASS II-Mild systemic disease Plan of Care: Pt appropriate candidate for procedure/moderate/conscious sedation , Risks/benefits of procedure/sedation discussed w/ patient/family
[2017-11-04] MEDS ORDERED: Tirofiban 5 MG/100 mL 5 MG/100 ML VIAL IV ONE (15:58)
[2017-11-04] MEDS ORDERED: *HR* Ticagrelor 90 MG TABLET ONE (16:11)
--- NOTE | 2017-11-04 16:28 | Invasive Diagnostic Lab Proc ---
Name: Jason Rivera Date of Study: 11/04/2017 Date: 1940 Ht: 70.4in Medical Record#: [id number] Age: 77 Wt: 176.59lb Gender: Male BSA: 1.99 Order #: [id number] BMI: 25.06 Physicians Procedure Physician: Keshawn Rand MD, [facility] Referring MD: Referring MD: Staff Name Position Time In Sites, Colette RT (R) Monitor 03:25 PM Colette Aleman RT (R) Scrub 03:25 PM Ashwini Rojo RN Hand Sewer Shoes 03:25 PM Indications Indication Cardiomyopathy Unstable Angina Procedures Performed Procedure L HRT ARTERY/VENTRICLE ANGIO PRQ CARD FABIOLA STENT W/ANGIO 1 VSL Pre-Procedure Checklist Informed consent is complete signed and on chart. H&P is on chart. ID band is on and ID verified with patient. Patient NPO for procedure The procedure was described for the patient and questions were answered. Blood Pressure: 106/70 ECG is on chart. Rhythm: Atrial Fibrillation Plan of Care Patient will tolerate the procedure without complications. Adequate level of comfort will be maintained. Hemodynamics will remain stable Patient will recover from procedure without complications. Respiratory function will be maintained. Cardiac rhythm will remain stable. Patient temperature will be maintained. Patient and/or family have verbalized understanding of the procedure. Patient Education Chief Complaint/Reason for Test: Cardiac Cath Developmental Category: Geriatric (65+ years) Developmentally Appropriate for Age: Yes Learning Barriers: None Education Needs: Procedure Education Method: Verbal Information Taught: Cardiac Cath Educational Evaluation: Able to repeat information Intravenous Access Time IV Size Location DC'd Fluid/Drip Rate Units RN 20g 1 1/" Patent On Arrival Lt Wrist 0.9NaCl 25 ml/hr Ashwini Rojo RN 20g 1 1/4" Patent On Arrival Rt Antecubital Allergies No Known Allergies Vital Signs Time BP (mmHg) HR (bpm) O2 Sat. RR (bpm) LOC 03:26 PM / % 5 = Fully awake and oriented or at pre-proc level 03:26 PM / % 4 = Oriented but drowsy 03:41 PM / % 4 = Oriented but drowsy 03:31 PM 130 / 92 92 96 % 16 03:36 PM 126 / 83 88 96 % 20 03:41 PM 126 / 87 103 96 % 38 03:46 PM 97 / 61 93 % 28 03:51 PM 90 / 65 98 88 % 18 03:57 PM 127 / 79 94 93 % 11 04:01 PM 103 / 73 90 95 % 6 04:07 PM 117 / 77 91 % 7 04:11 PM 122 / 75 84 93 % 13 Procedural Medications Time Medication Dose Units Method Given By 03:26 PM Oxygen 2 L/min nasal cannula Ashwini Rojo RN 03:36 PM Oxygen 2 L/min nasal cannula Ashwini Rojo RN 03:36 PM Versed 2 mg Intravenous Ashwini Rojo RN 03:36 PM Fentanyl 50 mcg Intravenous Ashwini Rojo RN 03:43 PM Lidocaine 2% 0.5 ml Subcutaneous Keshawn Rand MD, FACC 03:44 PM Heparin 2000 units Nitroglycerin 200 mcg Verapamil 2.5 mg Intraarterial Keshawn Rand MD, FACC 04:12 PM Aggrastat Bolus: 25 ml Intravenous Ashwini Rojo RN 04:12 PM Aggrastat 12.5mg/250ml 9 ml Intravenous Ashwini Rojo RN 04:12 PM Plavix 600 mg Orally Ashwini Rojo RN ASA Classification: CLASS II- Mild systemic disease (i.e. well-controlled diabetes, hypertension, asthma, cigarette smoking) Ras Score Preprocedure Postprocedure Activity 2- Moves 4 extremities sustained head lift Activity 2- Moves 4 extremities sustained head lift Circulation 2- SBP +/= 20 points of pre-anesthetic level Circulation 2- SBP +/= 20 points of pre-anesthetic level Consciousness 2- Awake and alert oriented x 3 Consciousness 2- Awake and alert oriented x 3 O2 Saturation 2- Able to maintain O2 satruation of 92% on room air O2 Saturation 2- Able to maintain O2 satruation of 92% on room air Respiratory 2- Able to deep breathe and cough well Respiratory 2- Able to deep breathe and cough well Total Score 10 Total Score 10 Contrast Agent: Isovue Diagnostic Contrast: 95 ml Total Contrast: 95 ml Fluoro Dose: 495 mGy Activated Clotting Time Time Seconds to Clot 04:00 PM 209 Procedure Log Time Note Enter By 03:25 PM 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 tsites Procedure start : PM Time: 15: Oxygen on at 2 L/min per nasal cannula by Ashwini Rojo RN PM Time: 15: Patient comfortable and pain free: Yes PM Time: :LOC: 5 = Fully awake and oriented or at pre-proc level tsites PM Clinical Presentation: Stable angina tsites 03: PM CathStat 03: PM Vitals capture started with the following parameters, Patient=Adult, Interval=5 min, Initial Vlusatml=416 mmHg, Deflation Rate=5 mmHg, Cuff placed on Right Arm 03: PM HR=92 bpm, JLPE=766/92 mmhg, SpO2=96.0 %, Resp=16 B/min 03:34 PM Recorded ECG: HR=88 Condition=Condition 1 03:36 PM Hair removed from procedure site in holding area using clippers. Right wrist and right groin prepped with Chloraprep by Colette Shaffer (Raquel), then patient was draped. Skin intact. tsites 03:36 PM Time: 15:36 Oxygen on at 2 L/min per nasal cannula by Ashwini Rojo RN 03:36 PM Time: 15:36 Versed 2 mg Intravenous Given by Ashwini Rojo RN 03:36 PM Time: 15:36 Fentanyl 50 mcg Intravenous Given by Ashwini Rojo RN tsites 03:36 PM HR=88 bpm, NAZW=146/83 mmhg, SpO2=96.0 %, Resp=20 B/min 03:38 PM Pressure channel 1 zero failed. 03:38 PM Pressure channel 1 zeroed. 03:41 PM Time: 15:26LOC: 4 = Oriented but drowsy tsites : PM Time: 15:26 Patient comfortable and pain free: Yes tsites : PM HY=287 bpm, ERIE=011/87 mmhg, SpO2=96.0 %, Resp=38 B/min 03:42 PM Time out performed according to hospital policy tsites 03:43 PM Time: 15:43 0.5 ml Lidocaine 2% to right radial Subcutaneous Given by Keshawn Rand MD, [facility] tsites 03:44 PM Access obtained by percutaneous puncture. 6Fr 10cm Terumo Glidesheath sheath placed in right Femoral artery. [id number] tsites 03:44 PM Time: 15:44 Patient given 2,000 units Heparin, 200 mcg Nitroglycerin, and 2.5 mg Verapamil Intraarterial by Keshawn Rand MD, [facility]. This is given to reduce risk of vessel spasm and thrombosis. tsites 03:44 PM 5Fr TIG catheter inserted over the wire [facility] tsites 03:44 PM 0.035 260cm Navilyst 3mmJ wire [id number] tsites 03:45 PM Wire removed tsites 03:46 PM LCA angiography performed in multiple views. tsites 03:46 PM HR=93 bpm, NIBP=97/61 mmhg, Resp=28 B/min 03:48 PM Lesion found in Mid Circumflex. Pre Stenosis: 90 Pre JONI Flow: tsites 03:49 PM Circumflex, Obtuse Marginal, Left Posterior Descending, and Left Posterolateral Coronary Arteries with 90 % stenosis. If graft is supplying this area, 0 % stenosis tsites 03:51 PM wire reinserted catheter removed tsites 03:51 PM 5Fr AR catheter inserted over the wire [id number] tsites 03:51 PM HR=98 bpm, NIBP=90/65 mmhg, SpO2=88 %, Resp=18 B/min 03:52 PM RCA angiography performed in multiple views. tsites 03:52 PM Pressure channel 1 zero failed. 03:52 PM Pressure channel 1 zeroed. 03:52 PM wire reinserted catheter removed tsites 03:54 PM Recorded Pressure: LV, HR=92, Condition=Condition 1 (Left Ventricle) LV 110/8/13 03:54 PM Recorded Pressure: LV, Ao, HR=95, Condition=Condition 1 (Left Ventricle) LV 119/34/37, (Aorta) Ao 119/64/93 03:55 PM 5Fr Pigtail catheter inserted over the wire [facility] tsites 03:55 PM Catheter selectively placed in left ventricle tsites 03:55 PM Bolus angiogram of left Ventricle complete: 12 ml/sec for a total of 24 mls tsites 03:55 PM Catheter selectively placed in left ventricle tsites 03:55 PM Coronary Dominance: Left tsites 03:55 PM PCI Status Urgent tsites 03:55 PM PCI Indication: PCI for high risk Non-STEMI or unstable angina tsites 03:55 PM PCI lesion in Mid Circumflex. tsites 03:56 PM 6Fr CLS 3.0 Runway guide catheter was used to cannulate the PCI vessel successfully. reused? No tsites 03:56 PM .014 [place] 182cm guide wire across target lesion- successful. reused? No tsites 03:56 PM Inflation device was opened. tsites 03:57 PM Time: 15:41 Patient comfortable and pain free: Yes tsites 03:57 PM Time: 15:41LOC: 4 = Oriented but drowsy tsites 03:57 PM HR=94 bpm, CQZR=176/79 mmhg, SpO2=93.0 %, Resp=11 B/min 03:58 PM ACT drawn tsites 04:00 PM At 16:00 the ACT was 209 seconds. tsites 04:01 PM HR=90 bpm, TFEY=596/73 mmhg, SpO2=95 %, Resp=6 B/min 04:02 PM 2.5 mm x 8 mm Emerge Monorail balloon across target lesion- successful. reused? No tsites 04:03 PM Balloon inflated @ 14 jamil for 22 seconds tsites 04:05 PM Balloon catheter removed intact. tsites 04:05 PM 3.5mm x 16mm Synergy drug-eluting stent across target lesion- successful Lot #[id number] tsites 04:07 PM Stent deployed @ 12 jamil for 23 seconds tsites 04:07 PM HR=91 bpm, KLHG=642/77 mmhg, Resp=7 B/min 04:07 PM Stent balloon reinflated @ 14 jamil for 10 seconds tsites 04:08 PM Stent delivery system removed intact. tsites 04:08 PM 3.5 mm x 12mm NC Trek Rx balloon across target lesion- successful. reused? No tsites 04:09 PM Balloon inflated @ 18 jamil for 18 seconds tsites 04:11 PM Balloon catheter removed intact. tsites 04:11 PM Guide wire removed intact. tsites 04:11 PM HR=84 bpm, ZNFJ=124/75 mmhg, SpO2=93 %, Resp=13 B/min 04:11 PM wire reinserted catheter removed tsites 04:12 PM Time: 16:12 Aggrastat Bolus: 25 ml Intravenous Given by Ashwini Rojo RN Davis pump tsites 04:12 PM Time: 16:12 Aggrastat 12.5mg/250ml 13.9 ml Intravenous Given by Ashwini Rojo RN Davis pump tsites 04:13 PM Time: 16:12 Plavix 600 mg Orally Given by Ashwini Rojo RN tsites 04:13 PM Procedure completed at 16:13 tsites 04:13 PM Did you address JONI flow and Dominance? Yes tsites 04:13 PM Isovue 370 - 200ml,1 Bottle(s) used. tsites 04:13 PM Arterial sheath pulled, Vasc Band closure device used and was Successful S/N. tsites 04:13 PM 10 ml air in Vasc Band. tsites 04:13 PM Estimated Blood Loss: less than 20cc tsites 04:13 PM Post ECG Atrial Fibrillation tsites 04:14 PM Post Blood Pressure 122/75 tsites 04:14 PM 16:14 Post Pulses Rt Radial 1+ tsites 04:14 PM Information taught Cardiac Cath, PCI, and Vasc Band tsites 04:14 PM Education needs Procedure, Plan of Care, and Responsibilities of Patient in Care tsites 04:14 PM Learning barriers :None tsites 04:14 PM Education Methods Verbal tsites 04:14 PM Education evaluation Able to repeat information tsites 04:14 PM Site status No bleeding/hematoma - Rt Wrist as reported by Colette Aleman RT (R) at 16:14 tsites 04:14 PM Plavix, Effient or Brilinta given Yes tsites 04:18 PM Lesion found in 1st Marginal. Pre Stenosis: 50 Pre JONI Flow: tsites 04:18 PM Report given to josse CHAPA Pt taken to Other Room #[id number]. 16:18 tsites 04:18 PM Delay to floor No tsites 04:18 PM Patient out of room: 16:18 tsites 04:18 PM Family placed in consult room. tsites 04:20 PM Sign out completed: Radiation Dose 495 mGy Fluoro Time: 8.2 Isovue 370 - 200ml contrast 95 ml given by Keshawn Rand MD, FACC. Complications: NoneCardiac Rehab Consult needed: YesConfirmed administered medications: Yes tsites Complications Complication None Hemodynamics Pressures Site Systolic/A Wave Diastolic/V Wave Mean LV 110 8 13 LV 119 34 37 AO 119 64 93 Post Procedure Information Blood Pressure: 122/75 mmHg Rhythm: Atrial Fibrillation Post procedural instructions were given Closure Device Time Device Success/Fail 11/04/2017 4:19:00 PM Mechanical Compression Successful Site Checks Time Location Status Staff Sheath In? Note 04:14 PM Rt Wrist No bleeding/hematoma Colette Aleman RT (R) Pulses Time Site Pre-Procedure Post-Procedure Note Bilateral DP 2+ Bilateral PT 1+ Lt Radial 2+ 4:14:00 PM Rt Radial 1+ Updated by Colette Shaffer RT (R) on 11/04/2017 4:21:37 PM Colette Shaffer RT electronically signed on 11/04/2017 4:22:01 PM with status of Final
[2017-11-04] MEDS ORDERED: Tirofiban 12.5 MG/250ML 12.5 MG/250 ML BAG IVC SCH (16:30)
[2017-11-04] MEDS: Gabapentin 300 MG CAPSULE PO SCH (20:46)
[2017-11-04] MEDS: ALPRAZolam 0.5 MG TABLET PO SCH (20:46)
--- NOTE | 2017-11-04 22:14 | Internal Med Progress Note ---
Date of Encounter: 11/04/17 Time of Encounter: 12:13 - Assessment and plan (1) New onset atrial fibrillation Current Visit: Yes Status: Acute Assessment and plan: Currently rate controlled on cardizem drip, patient denies any symptoms currently Echocardiogram pending Cardiology consulted, recommendations appreciated [facility] today Patient would like to go home today, we discussed risks of going home too early without proper cardiac workup and treatment. (2) HTN (hypertension) Current Visit: Yes Status: Acute Assessment and plan: Controlled, [place] inhibitor held because of elevated potassium on admission. Will resume now potassium is normal and LVEF is low Qualifiers: Hypertension type: essential hypertension Qualified Code(s): I10 - Essential (primary) hypertension (3) Hyperkalemia Current Visit: Yes Status: Deleted Assessment and plan: [place] inhibitor held, recheck was normal this morning. (4) DVT prophylaxis Current Visit: Yes Status: Acute Assessment and plan: Currently on heparin drip - Subjective Interval history: No complaints, no acute events overnight. Denies chest pain, SOB, palpitations , n/v, fevers/chills. - Constitutional Vitals: Temp Pulse Resp BP Pulse Ox 97.9 F 87 16 111/76 93 11/04/17 20:56 11/04/17 20:56 11/04/17 20:56 11/04/17 20:56 11/04/17 20:56 General appearance: Present: cooperative, A&O X 3, no acute distress, answers questions appropriately - Head Head exam: Present: atraumatic, normocephalic - Eye Eye exam: Present: PERRL, conjuntiva pink, sclera anicteric Pupils: Present: PERRL - Neck Neck exam general surgery: Present: supple, trachea midline. Absent: lymphadenopathy - Respiratory Respiratory exam: Present: CTAB. Absent: accessory muscle use, rales, rhonchi, wheezes - Cardiovascular Cardiovascular exam: Present: irregular rhythm, +S1, +S2. Absent: diastolic murmur, gallop, rubs, systolic murmur - GI/Abdominal GI/Abdominal exam: Present: normal bowel sounds, soft, no peritoneal signs. Absent: distended, tenderness - Extremities Exam Extremities exam: Present: warm, radial pulses palpable and symmetrical. Absent : calf tenderness, cyanotic, pedal edema - Neurological Exam Neurological exam: Present: CN II-XII intact, oriented X3, no focal deficits. Absent: pronater drift, facial droop, speech deficit - Skin Skin exam: Present: dry, intact Internal Medicine: Result - Labs CBC & Chem 7: 11/05/17 12:37 11/05/17 12:37 Labs: Short CBC 11/04/17 Range/Units 05:07 WBC 9.5 (4.3-11.1) K/mcL Hgb 16.8 (12.9-16.9) g/dL Hct 48.8 (37.5-50.1) % Plt Count 243 (140-400) K/mcL Neutrophils # 6.5 (1.6-8.9) K/mcL BMP 11/04/17 05:07 Sodium 135 L Potassium 4.2 Chloride 105 Carbon Dioxide 21 L BUN 27 H Creatinine 0.72 Glucose 122 H Calcium 8.9 - ABG Interpretation ABG results: PT/INR, D-dimer PT 11.0 Seconds (9.4-12.1) 11/02/17 12:05 Consult Discharge Plan - Plan Referrals: Milton Platt MD [Primary Care Provider] - Prescriptions: Apixaban [Eliquis] 5 mg PO BID #60 tablet Aspirin 81 mg PO DAILY #30 tab.chew Atorvastatin [Lipitor] 80 mg PO HS #30 tablet Clopidogrel [Plavix] 75 mg PO DAILY #30 tablet Metoprolol XL (24 HR) Succ [Toprol Xl] 25 mg PO DAILY #30 tab.er.24h
[2017-11-05] MEDS ORDERED: Aspirin 81 MG TAB.CHEW PO SCH (09:00)
[2017-11-05] MEDS ORDERED: Apixaban 5 MG TABLET PO SCH (09:00)
[2017-11-05] MEDS: Metoprolol XL (24 HR) Succ 25 MG TAB.ER.24H PO SCH (12:39)
[2017-11-05 13:00] LABS: Basophils # 0.1 K/mcL (0.0-0.2); Basophils % 0.4 %; Eosinophils # 0.2 K/mcL (0.0-0.6); Eosinophils % 1.9 %; Hemoglobin 17.9 g/dL (12.9-16.9); Immature Granulocytes % 0.7 % (0-4); Lymphocytes # 2.1 K/mcL (0.6-4.6); Mean Corpuscular HGB Conc 34.4 g/dL (31.6-35.5); Mean Corpuscular Hemoglobin 30.7 pg (28.0-33.3); Mean Corpuscular Volume 89.2 fL (83.0-100.0); Mean Platelet Volume 10.5 fL (9.4-12.4); Monocytes # 1.2 K/mcL (0.0-1.3); Monocytes % 10.9 %; Neutrophils # 7.8 K/mcL (1.6-8.9); Platelet Count 248 K/mcL (140-400); Red Blood Count 5.83 M/mcL (4.19-5.50); Segmented Neutrophils % 68.1 %
[2017-11-05 14:37] LABS: BUN/Creatinine Ratio 34 (6-26); Blood Urea Nitrogen 24 mg/dL (8-23); Calcium 9.1 mg/dL (8.6-10.3); Carbon Dioxide 17 mEq/L (23-29); Chloride 105 mEq/L (98-107); Glucose 97 mg/dL (70-105); Osmolality,Calculated 282 (280-300); Sodium 134 mEq/L (136-145); eGFR For African Americans > 60 (> 60); eGFR For Non-African Americans > 60 (> 60)
--- NOTE | 2017-11-05 15:17 | Cardiology Progress Note ---
Date of Encounter: 11/05/17 Time of Encounter: 15:15 Assessment and Plan (1) Cardiomyopathy Current Visit: Yes Status: Acute Per Cardiology: EF mildly reduced, 45%, global. S/p LHC and stenting. On BB. Euvolemic on exam. Education reinforced regarding sodium and fluid restriction diet. Qualifiers: Cardiomyopathy type: unspecified Qualified Code(s): I42.9 - Cardiomyopathy , unspecified (2) CAD (coronary artery disease) Current Visit: Yes Status: Acute Per Cardiology: Status post left heart catheterization with PTCA/drug-eluting stent to mid circumflex 80-90% lesion. Has nonobstructive proximal LAD 20%, mid LAD 30%, diagonal 1 20%, OM1 50% lesions. On asa, BB, Plavix. Will add statin. Patient provided education instructions regarding medication regimen and aware to not discontinue aspirin or Plavix for at least 1 year unless directed by cardiology. Additionally, patient aware he is on triple therapy and monitor for any active bleeding or blood loss. Currently chest pain-free. Cardiology will sign off, reconsult as needed, follow-up arranged. Patient and family verbalized understanding and agreed with plan. All questions answered. Qualifiers: Coronary Disease-Associated Artery/Lesion type: [place] artery [place] vs. transplanted heart: [place] heart Associated angina: without angina Qualified Code(s): I25.10 - Atherosclerotic heart disease of [place] coronary artery without angina pectoris (3) New onset atrial fibrillation Current Visit: Yes Status: Acute Per Cardiology: SR on BB. HR in 80's. Now on Eliquis 5mg PO BID-- assistance card provided. Discussion w patient/family: The assessment and plan as outlined above was discussed with the patient and/or family members who expressed understanding and agreement. All questions were answered. Thank you for involving us in the care of your patient. Please call with any questions. Subjective Principal diagnosis: Afib Interval history: Patient denies any chest pain, short of breath, palpitations. Denies any concerns with his right wrist site. Objective Vital Signs, Last 4 Hours Temp Pulse Resp BP Pulse Ox 11/05/17 11:35 97.8 F 89 14 144/94 96 General: Conversant, No Apparent Distress HEENT: Atraumatic, Normocephaly, Mucus Membranes Moist Neck: No JVD, Normal carotid pulses Cardiac: Reg Rate and Rhythm, Normal S1 and S2, No Murmur Lungs: Normal Breath Sounds, No Wheeze, Rales, Rhonchi Neuro: Alert and responsive, No focal deficits noted Abdomen: Soft, Non-Tender Skin: No rashes noted on visualized skin, Other (Right wrist site dry and intact , no hematoma, no ecchymosis, no bleeding, right radial pulse 2+ palpable) Musculoskeletal: No Chest Wall Tenderness Extremities: No Clubbing, No Cyanosis, No Edema, Normal Pulses Results 11/05/17 12:37 11/05/17 12:37 Lab Results ITS Impressions Chest X-Ray 11/02/17 11:32 IMPRESSION: Mild cardiomegaly. No acute pulmonary disease. D/ / Jorge Hernandez MD / Jorge Hernandez MD Interpreting Provider: Jorge Hernandez MD Echocardiogram 11/02/17 14:37 Impressions: LVEF 45%. Normal LV chamber size and wall thickness. Mild global left ventricular systolic dysfunction. Indeterminate diastolic function. Normal right ventricular structure and function. Severely dilated left atrium. Mild mitral regurgitation. No evidence of pulmonary hypertension. No significant valvular dysfunction. Left Ventricular Wall Motion: Rest Echo Findings The apex, apical inferior, mid inferior, basal inferior, apical anterior, mid anterior, basal anterior, apical septal, mid inferior septal, basal inferior septal, apical lateral, mid anterior lateral, basal anterior lateral, mid anterior septal, mid inferior lateral, basal anterior septal and basal inferior lateral peck were hypokinetic. Findings: Study Quality * Technically adequate exam. ECG Findings * Atrial fibrillation. Left Ventricle * LVEF 45%. * Normal LV chamber size and wall thickness. * Mild global left ventricular systolic dysfunction. * Indeterminate diastolic function. Right Ventricle * Normal right ventricular structure and function. Left Atrium * Severely dilated left atrium. Right Atrium * Moderate to severely dilated right atrium. Interatrial Septum * Interatrial septum not well evaluated. Aortic Valve * Aortic valve not well visualized. * Mildly calcified aortic valve leaflets. * No aortic regurgitation. * No aortic stenosis. Mitral Valve * Mildly thickened and calcified anterior mitral valve leaflets. Mild posterior mitral annular calcification. * Mild mitral regurgitation. * No mitral stenosis by Doppler. Gradient may be underestimated due to AF. Tricuspid Valve * Normal tricuspid valve structure and function. * Trace tricuspid regurgitation. * No evidence of pulmonary hypertension. Pulmonic Valve * Normal pulmonic valve structure. * Mild pulmonic regurgitation. Aorta * Normally sized aortic root. Pericardium * The pericardium appears normal. IVC * Normal IVC dimensions and inspiratory collapse. Pulmonary Artery * Normal visualized portions of the main pulmonary artery. Active Medications Albuterol Sulfate (Albuterol Inhaler) 2 puff IH Q6H PRN PRN Reason: Dyspnea Stop: 05/04/18 13:47 Alprazolam (Xanax) 1 mg PO HS INA PRN Reason: Protocol Stop: 05/04/18 21:01 Last Admin: 11/04/17 20:46 Dose: 1 mg Apixaban (Eliquis) 5 mg PO BID [facility] Stop: 05/07/18 09:01 Last Admin: 11/05/17 12:39 Dose: 5 mg Aspirin (Aspirin) 81 mg PO DAILY [facility] Stop: 05/07/18 09:01 Last Admin: 11/05/17 08:51 Dose: 81 mg Clopidogrel Bisulfate (Plavix) 75 mg PO DAILY [facility] Stop: 05/07/18 09:01 Last Admin: 11/05/17 08:51 Dose: 75 mg Gabapentin (Neurontin) 300 mg PO HS [facility] Stop: 05/04/18 21:01 Last Admin: 11/04/17 20:46 Dose: 300 mg Levothyroxine Sodium (Synthroid) 88 mcg PO DAILY [facility] Stop: 05/05/18 09:01 Last Admin: 11/04/17 09:30 Dose: Not Given Metoprolol Succinate (Toprol Xl) 25 mg PO DAILY [facility] Stop: 05/05/18 15:31 Last Admin: 11/05/17 12:39 Dose: 25 mg Metoprolol Tartrate (Lopressor) 5 mg IVP Q6HR PRN PRN Reason: Hypertension Stop: 05/04/18 13:47 Naloxone HCl (Narcan) 0.4 mg IVP Q2MIN PRN PRN Reason: SEE COMMENTS Stop: 05/04/18 14:03 Omeprazole (Prilosec) 20 mg PO 0630 [facility] Stop: 05/05/18 06:31 Last Admin: 11/05/17 08:52 Dose: 20 mg - Imaging and Cardiology Cardiac cath: report reviewed - EKG Interpretation EKG results cardiology: other (SR 80's) Consult Discharge Plan - Plan Referrals: Milton Platt MD [Primary Care Provider] -
[2017-11-05 17:05] VITALS: BP 145/91
--- NOTE | 2017-11-05 17:10 | Discharge Summary ---
Date of Encounter: 11/05/17 Time of Encounter: 17:06 - Discharge Diagnosis (1) New onset atrial fibrillation Priority: Primary Status: Acute (2) HTN (hypertension) Priority: Secondary Status: Acute Qualifiers: Hypertension type: essential hypertension Qualified Code(s): I10 - Essential (primary) hypertension (3) CAD (coronary artery disease) Priority: Secondary Status: Acute Qualifiers: Coronary Disease-Associated Artery/Lesion type: [place] artery [place] vs. transplanted heart: [place] heart Associated angina: without angina Qualified Code(s): I25.10 - Atherosclerotic heart disease of [place] coronary artery without angina pectoris (4) Cardiomyopathy Priority: Secondary Status: Acute Qualifiers: Cardiomyopathy type: unspecified Qualified Code(s): I42.9 - Cardiomyopathy , unspecified (5) DVT prophylaxis Priority: Secondary Status: Acute - Discharge Medications Prescriptions: Apixaban [Eliquis] 5 mg PO BID #60 tablet Aspirin 81 mg PO DAILY #30 tab.chew Atorvastatin [Lipitor] 80 mg PO HS #30 tablet Clopidogrel [Plavix] 75 mg PO DAILY #30 tablet Metoprolol XL (24 HR) Succ [Toprol Xl] 25 mg PO DAILY #30 tab.er.24h Home Medications: ALPRAZolam [Xanax 1 MG Tablet] 1 mg PO DAILY 11/02/17 [History] Albuterol Sulfate [Ventolin Hfa] 2 puff IH Q6H PRN 11/02/17 [History] Gabapentin [Neurontin] 300 mg PO DAILY 11/02/17 [History] Levothyroxine [Synthroid] 88 mcg PO DAILY 11/02/17 [History] Lisinopril [Zestril] 10 mg PO DAILY 11/02/17 [History] Pantoprazole Sodium [Protonix] 40 mg PO DAILY 11/02/17 [History] Apixaban [Eliquis] 5 mg PO BID #60 tablet 11/05/17 [Rx] Aspirin 81 mg PO DAILY #30 tab.chew 11/05/17 [Rx] Atorvastatin [Lipitor] 80 mg PO HS #30 tablet 11/05/17 [Rx] Clopidogrel [Plavix] 75 mg PO DAILY #30 tablet 11/05/17 [Rx] Metoprolol XL (24 HR) Succ [Toprol Xl] 25 mg PO DAILY #30 tab.er.24h 11/05/17 [ Rx] Allergies/Adverse Reactions: 3 Allergy/AdvReac Type Severity Reaction Status Date / Time No Known Allergies Allergy Unverified 11/02/17 11:05 Procedures/tests Complete & Pending: Procedures Performed prior 72 hours Category Date Time Status CL Cardiac Catheterization [CL] Routine P[employer] 11/04/17 08:07 Completed Date of admission: 11/02/17 14:13 Primary care physician: Milton Nunez Consults: 11/05/17 16:10 Consult to Cardiac Rehabilitation-Phase1 [CONS] Routine Comment: Reason for Consult: cad, stent Call Completed: Yes Discharging clinician: Cinthia Noel - Patient Status Disposition: Home, Self-Care Condition: Fair Functional capacity at discharge: independent ambulation Overall status at discharge: patient is progressing back to baseline - Discharge Instructions Follow Up With: Milton Platt MD [Primary Care Provider] - - Diet and Activity Activity: increase activity as tolerated Diet: low fat, low cholesterol, low salt diet Hospital course: Mr. Rivera is a 77 year old male with PMH of hypertension and hypothyroidism, presented ED after getting a steroid injection. He states staff took vitals before he left and his HR was elevated and irregular, EKG was obtained showing A -Fib RVR and he was sent to the ED. He has no prior history of CAD. He had exertional dyspnea and activity intolerance due to fatigue for approximately the last 8 months. is at bedside and reports she has also felt his pulse to be irregular approximately 8 months ago. Pt denies chest pain or palpitations. Has also noticed episodes of "hot flashes" and diaphoresis. He was started on a cardizem drip in ED and heart rate corrected to 80s-90s. Cardiology was consulted and patient was also started on heparin drip. Workup included an Echocardiogram that showed EF 45% with global LV systolic dysfucntion, severely dilated LA, mild MR. His TSH was within normal limits. He was started on Toprol XL and cardizem was discontinued. HR remained stable. He had left heart catheterization done on 11/04/17 and patient required stenting. He was started on dual antiplatelet therapy, also started on Eliquis after discussing risks of benefits of anticoagulation with atrial fibrillation. He was discharged on beta salvador, statin, dual antiplatelet therapy asa/ plavix, and lisinopril. - Time Spent with Patient Total time spent providing and/or coordinating discharge services: - Constitutional Vitals: Temp Pulse Resp BP Pulse Ox 98.5 F 84 14 145/91 94 11/05/17 16:58 11/05/17 16:58 11/05/17 16:58 11/05/17 16:58 11/05/17 16:58 General appearance: Present: cooperative, A&O X 3, no acute distress, answers questions appropriately - Head Head exam: Present: atraumatic, normocephalic - Eye Eye exam: Present: PERRL, conjuntiva pink, sclera anicteric Pupils: Present: PERRL - Neck Neck exam general surgery: Present: supple, trachea midline. Absent: lymphadenopathy - Respiratory Respiratory exam: Present: CTAB. Absent: accessory muscle use, rales, rhonchi, wheezes - Cardiovascular Cardiovascular exam: Present: irregular rhythm, +S1, +S2. Absent: diastolic murmur, gallop, rubs, systolic murmur - GI/Abdominal GI/Abdominal exam: Present: normal bowel sounds, soft, no peritoneal signs. Absent: distended, tenderness - Extremities Exam Extremities exam: Present: warm, radial pulses palpable and symmetrical. Absent : calf tenderness, cyanotic, pedal edema - Neurological Exam Neurological exam: Present: CN II-XII intact, oriented X3, no focal deficits. Absent: pronater drift, facial droop, speech deficit - Skin Skin exam: Present: dry, intact
== END 2017-11-05 17:40 | disposition home or self-care (01) ==
LOC: EMEROO 11:00 → 2SOUTHHOLD 11:00
PROVIDERS: ADMIT Student in an Organized Health Care Education/Training Program; ATTEND Internal Medicine